=== PATIENT | female | born 1990 | race Caucasian/White ===

== ENCOUNTER 2023-10-11 18:25 | Inpatient (IN) | payer SELFPAY, OTHER ==
[2023-10-11] VITALS (7 sets, daily range): BP systolic 120–124; BP diastolic 69–78; PULSE 70–82; RESP 17–18; TEMP 36.1–36.7; O2SAT 97–98; BMI 27.1
[2023-10-11] MEDS: Lactated Ringers 1,000 ML 50 ML IV (19:16)
[2023-10-11 19:25] LABS: Absolute Lymphocyte Count 2.62 X10^3/uL (0.83-4.51); Absolute Neutrophil Count 9.8 X10^3/uL (2.0-7.7); Basophil# 0.04 X10^3/uL; Basophil% 0.3 % (0-1); Eosinophil# 0.12 X10^3/uL; Eosinophils% 0.9 % (0-5); Hematocrit 36.8 % (37-47); Hemoglobin 12.4 g/dL (12.0-15.0); Lymphocyte # 2.62 X10^3/ul (0.83-4.51); Lymphocyte % 19.5 % (19-41); Mean Corp Hgb Conc 33.7 g/dL (32-36); Mean Corpuscular Hgb 30.4 pg (27.0-32.0); Mean Corpuscular Volume 90.2 fL (81-99); Mean Platelet Vol. 9.7 fl (6.2-12.0); Monocyte# 0.75 X10^3/uL; Monocyte% 5.6 % (0-10); NRBC Flagged by Analyzer 0 % (0-5); Neutrophil # 9.77 X10^3/uL (2.7-7.7); Neutrophil % 72.8 % (47-70); Platelet Count 220 K/mm3 (150-450); RBC Distribution Width CV 12.9 % (11.6-14.6); RBC Distribution Width SD 42.5 fl (35.1-43.9); Red Blood Count 4.08 M/mm3 (4.2-5.4); White Blood Count 13.4 K/mm3 (4.4-11.0)
[2023-10-11] MEDS: Penicillin G Pot 5,000,000 UNITS in 0.9% Normal Saline (100mL MB+) 100 ML 150 UNITS IV (19:31)
--- NOTE | 2023-10-11 19:48 | HP.PCM.OB_ITS ---
HPI - General General Date of Admission: 10/11/23 HPI Narrative SHODNA ECKERT, is a 33 F @ 38.6 weeks gestation who presents with SROM at 1500 today. History of section for breech presentation with first delivery. Successful with previous delivery in 2019. Desires . has been uncomplicated. She was receiving care at [facility] and transferred and seen at our office last week. Maternal Data Information SALINAS Calculator Estimated Delivery Date Method Current WG Current Estimate 10/19/23 Manual 38w 6d Final [facility] Medications PNV#14-iron [id number]#8-[id number] 27 mg iron-1 mg-300 mg-50 mg capsule 1 cap PO DAILY 10/11/23 [History Last Taken 10/11/23 08:00 1 cap] pyridoxine (vitamin B6) 25 mg tablet 25 mg PO TID nausea 10/11/23 [History Last Taken 10/11/23 07:00 25 mg] Allergy/AdvReac Type Severity Reaction Status Date / Time No Known Allergies Allergy Verified 10/11/23 18:31 Surgical History (Updated 10/11/23 @ 19:53 by Barbara Birmingham CNM) Previous section Social History Smoking Status: Never smoker History Elective abortions Hx Para 2 Spontaneous abortions Hx # Term Pregnancies Ectopic pregnancies Hx # Pregnancies Multiple births # of living children ROS Eyes Eyes: Denies blurry vision, change in vision or spots in vision ENT HEENT: Denies dizziness or headache(s) Cardiovascular Cardiovascular: Denies abdominal pain, chest pain or dyspnea Respiratory/Chest Respiratory/Chest: Denies cough, dyspnea, shortness of breath at rest or shortness of breath with exertion Gastrointestinal Gastrointestinal: Denies abdominal pain, diarrhea or vomiting Genitourinary Genitourinary: Denies change in urinary stream, difficulty urinating or dysuria Musculoskeletal Musculoskeletal: Reports none Integumentary Integumentary: Denies rash Neurologic Neurologic: Denies dizziness, headache(s), memory loss or weakness Psychiatric Psychiatric: Reports none Vital Signs Vital Signs Vital Signs: 10/11/23 19:34 10/11/23 19:34 10/11/23 19:34 Temperature Temperature Source Pulse Rate 70 Respiratory Rate Blood Pressure 124/69 H BP Systolic 124 BP Diastolic 69 Pulse Ox 97 10/11/23 19:36 10/11/23 19:36 10/11/23 19:36 Temperature Temperature Source Temporal Pulse Rate 82 Respiratory Rate Blood Pressure 124/69 H BP Systolic 124 BP Diastolic 69 Pulse Ox 10/11/23 19:36 10/11/23 19:36 10/11/23 19:36 Temperature 98.0 F Temperature Source Pulse Rate Respiratory Rate 17 Blood Pressure BP Systolic BP Diastolic Pulse Ox 97 Weight Weight: 144 lb Body Mass Index (BMI) 27.1 Physical Exam Const alert, oriented x3 and no apparent distress General Appearance: cooperative Orientation / Consciousness: awake Exam Limitations: no limitations HEENT normocephalic Head and Scalp: normal to inspection Eyes General Eye: normal appearance of both eyes Neck full ROM and no lymphadenopathy Lymph Lymphatic: no lymphadenopathy noted Chest inspection of chest normal Resp normal respiratory effort, normal air movement and clear to auscultation bilaterally Effort and Inspection: able to speak in complete sentences and symmetric chest movement Cardio regular rate and regular rhythm GI normal to inspection, nondistended, normoactive bowel sounds Manual OB Exam: presentation cephalic Amniotic Fluid: clear amniotic fluid Back/Spine normal ROM Extremity full ROM and no calf tenderness Skin no rashes or lesions noted General Skin Exam: no breakdown Neuro oriented x3 and CN's II-XII intact bilaterally Psych mental status grossly normal and thought process normal Labs Labs Labs: Blood Type Pending Antibody Screen Pending Hct 36.8 % (37-47) L Hgb 12.4 g/dL (12.0-15.0) Syphilis Total Ab Non-reactive GBS POSITIVE Assessment & Plan (1) 38 weeks gestation of : (2) Previous delivery, antepartum: (3) Hx successful (vaginal after ), currently : (4) Spontaneous rupture of amniotic membranes: (5) Positive GBS test: PLAN: Plan Admit to labor and delivery Start IV and run fluids per orders CE- 3.5/75/0 SROM for large amount of clear fluid around 1500 Successful with previous delivery Desires and consent signed in office GBS positive- Start PCN 5 million units IV now Epidural when indicated Anticipate Dr. Manzano notified of admission and is collaborating physician
[2023-10-11 20:02] LABS: Syphilis Antibodies Non-reactive
--- NOTE | 2023-10-11 21:38 | PN.OBGYN_ITS ---
Subjective Subjective Patient seen at bedside. Feeling increasing pain with contractions. Planning on ambulating hallways. Objective Data Objective Data Vital Signs: Vital Signs Temp Pulse Resp BP Pulse Ox 97.3 F L 76 18 122/73 H 97 10/11/23 21:24 10/11/23 21:25 10/11/23 21:24 10/11/23 21:25 10/11/23 21:24 Weight: 144 lb Body Mass Index (BMI) 27.1 Lab / Micro Data 10/11/23 19:15 Labs: Laboratory Results - last 24 hr 10/11/23 19:15: WBC 13.4 H, RBC 4.08 L, Hgb 12.4, Hct 36.8 L, MCV 90.2, MCH 30.4, MCHC 33.7, RDW Std Deviation 42.5, RDW Coeff of Maryana 12.9, Plt Count 220, MPV 9.7, Immature Gran % (Auto) 0.900, Neut % (Auto) 72.8 H, Lymph % (Auto) 19.5, [place] % (Auto) 5.6, Eos % (Auto) 0.9, Baso % (Auto) 0.3, Absolute Neuts (auto) 9.8 H, Absolute Lymphs (auto) 2.62, Nucleated RBC % 0, Syphilis Total Ab Non-reactive, Blood Type A POSITIVE, Antibody Screen NEGATIVE Assessment & Plan (1) Positive GBS test: (2) Spontaneous rupture of amniotic membranes: (3) Hx successful (vaginal after ), currently : (4) Previous delivery, antepartum: (5) 38 weeks gestation of : PLAN: Plan CE Clear fluid Discussed R/B/A of starting Pitocin IV to augment labor. Patient would like to wait for another 2 hours and then reevaluate Cat. 1 tracing, Irregular contractions Dr. Manzano updated and is currently on unit
[2023-10-11 21:51] LABS: Rubella IgG Reactive (Nonreactive)
[2023-10-11 22:24] LABS: HIV - WCH Non-Reactive (Nonreactive); Hepatitis B Surface Antigen Non-Reactive (Nonreactive); Hepatitis C Antibody Non-Reactive (Nonreactive)
[2023-10-11] MEDS: Penicillin G 3,000,000 Units 50 ML 100 UNITS IV (23:47)
[2023-10-11] MEDS: Oxytocin 15 Units/NS 250ml 15 UNITS/250 ML IV.SOLN 2 UNITS IV (23:50)
[2023-10-12] VITALS (23 sets, daily range): BP systolic 106–127; BP diastolic 65–83; PULSE 60–92; RESP 16–22; TEMP 36.3–37.1; O2SAT 97–98
[2023-10-12] MEDS: Ondansetron 4 MG/2 ML Vial IV (00:49)
--- NOTE | 2023-10-12 02:05 | OP.PCM_ITS ---
Assessment & Plan (1) Vaginal after (): (2) Care and examination of lactating mother: Maternal Data Information SALINAS Calculator Estimated Delivery Date Method Current WG Current Estimate 10/19/23 Manual 39w 0d Vaginal Delivery Maternal Presentation Maternal Presentation: Spontaneous Rupture of Membranes Maternal Presentation: at 38.6 weeks presented with spontaneous rupture of membranes. Operative Information Date of Procedure: 10/12/23 Pre-Operative Diagnosis: Term gestation, SROM Post-Operative Diagnosis: , live male Surgery / Procedure Performed: Spontaneous Vaginal Delivery and Type of Anesthesia: None Estimated Blood Loss: 200 Time of Delivery: 01:46 Findings Description of Procedure: Called to patient's room due to urge to push. Provided bedside support with pushing. Patient repositioned to hands and knees. With minimal maternal effort, head delivered followed by remainder of body without traction. Vigorous male placed through maternal legs and placed skin to skin with patient. Nursing staff attending to infant. Patient repositioned to lithotomy. Pitocin IV started for active management of the third stage of labor. Cord was clamped and cut after minimal delay and request for to be seen under warmer. Placenta delivered spontaneously and intact. Fundus firm and 2 below U. Small vaginal laceration noted that was not actively bleeding. Perineum intact. Hemostasis occurred. EBL 200. Truck Service Manager called to room after 5 minutes for assessment of under warmer. Dr. Manzano notified on unit and notified of delivery. Presentation: Vertex Amniotic Membrane Rupture Type: Spontaneous Time of Membrane Rupture: 1530 Amniotic Fluid Description: Clear Placental Delivery Description: Spontaneous Placenta Disposition: [facility] Cord Vessel Description: 3 Vessels Cord Entanglement: None Infant A Gender: Male (1 minute): 8 (5 minute): 7 Delayed Cord Clamping: Yes Post Vaginal Delivery Medications Given After Delivery: IV Pitocin Episiotomy Description: None Laceration: None Complication Complications: None
[2023-10-12] MEDS: Oxytocin 15 Units/NS 250ml 15 UNITS/250 ML IV.SOLN 83 UNITS IV (02:19)
[2023-10-12] MEDS: Acetaminophen 500 MG Tablet 1000 MG PO ×3 (04:19→20:44)
[2023-10-12] MEDS: Ibuprofen 600 MG Tablet PO ×2 (08:17→17:29)
--- NOTE | 2023-10-12 09:36 | PN.OBGYN_ITS ---
Subjective Subjective Patient seen at bedside. Denies pain. Ambulating and voiding without difficulty. Lochia is decreasing. Pumping due to baby being in SCN. Objective Data Objective Data Vital Signs: Vital Signs Temp Pulse Resp BP Pulse Ox O2 Del Method 98.7 F 61 16 124/73 H 98 Room Air 10/12/23 08:09 10/12/23 08:09 10/12/23 08:09 10/12/23 08:09 10/12/23 08:09 10/12/23 08:09 Oxygen Delivery Method Room Air Weight: 144 lb Body Mass Index (BMI) 27.1 Intake & Output: Intake and Output for Last 24 Hours 10/10/23 10/11/23 10/12/23 23:59 23:59 23:59 Intake Total 105 / 105 833.87 / 833.87 Output Total 500 / 500 1625 / 1625 Balance -395 / -395 -791.13 / -791.13 Lab / Micro Data 10/11/23 19:15 Labs: Laboratory Results - last 24 hr 10/11/23 19:15: WBC 13.4 H, RBC 4.08 L, Hgb 12.4, Hct 36.8 L, MCV 90.2, MCH 30.4, MCHC 33.7, RDW Std Deviation 42.5, RDW Coeff of Maryana 12.9, Plt Count 220, MPV 9.7, Immature Gran % (Auto) 0.900, Neut % (Auto) 72.8 H, Lymph % (Auto) 19.5, [place] % (Auto) 5.6, Eos % (Auto) 0.9, Baso % (Auto) 0.3, Absolute Neuts (auto) 9.8 H, Absolute Lymphs (auto) 2.62, Nucleated RBC % 0, Syphilis Total Ab Non-reactive, Blood Type A POSITIVE, Antibody Screen NEGATIVE 10/11/23 21:10: Hep Bs Antigen Non-Reactive, Hepatitis C Antibody Non-Reactive, HIV 1&2 Antibody Non-Reactive, Rubella IgG Antibody Reactive Micro: Microbiology 10/11/23 21:30 Genital vaginal Chlamydia trachomatis (PCR) - Final 10/11/23 21:30 Genital vaginal Neisseria gonorrhoeae (PCR) - Final ROS Eyes Eyes: Denies blurry vision, change in vision or spots in vision ENT HEENT: Denies dizziness or headache(s) Cardiovascular Cardiovascular: Denies abdominal pain, chest pain or dyspnea Respiratory/Chest Respiratory/Chest: Denies cough, dyspnea, shortness of breath at rest or shortness of breath with exertion Gastrointestinal Gastrointestinal: Denies abdominal pain, diarrhea or vomiting Genitourinary Genitourinary: Denies change in urinary stream, difficulty urinating or dysuria Musculoskeletal Musculoskeletal: Reports none Integumentary Integumentary: Denies rash Neurologic Neurologic: Denies dizziness, headache(s), memory loss or weakness Assessment & Plan (1) Care and examination of lactating mother: (2) Vaginal after (): PLAN: Plan DD 1 - Pain control support Anticipate discharge/hotel status tomorrow
--- NOTE | 2023-10-12 12:20 | CASEMGMT ---
Social Work Assessment Labor and Delivery Unit Patient Address:[address] [place] [address] Phone number: [phone] Date of Referral: 10/12/23 Time of Referral:? 323 Referred By: Harpreet Wray Date of Intervention: ??10/12/23 Time of Intervention:? 1200 Reason for Referral:? SCN admission Sw completed chart review and acknowledges social work consult entered due to baby requiring admission to [facility]. Sw presented to bedside and introduced self to mother of baby (MOB- Hannah) and father of baby (FOB- Ron). Sw explained role during hospitalization and completed psychosocial assessment. History obtained from: medical records, MOB and FOB Household composition: Currently residing in the family home is RENE, SHARDA, their two older daughters (Mounika, 6 y/o and Nichelle, 3 y/o) and now baby when ready for d/c. No concerns reported about current housing. Patient's parent/guardian status:? ?MOB states that she and SHARDA have been together for 7.5 years, they met while attending the same youth group. No reported concerns of domestic violence or intimate partner violence. Medical History: ?RENE is 33 year old female who is 3, para 2- now 3 following labor and delivery of . RENE received care with blower insulator throughout . RENE presented to hospital and delivered baby via successful at 38 weeks gestation on 10/12/23. Baby boy, named Juan Pablo, was born weighing 7lb and his apgars were 8 and 7 at one and five minutes of life, respectfully. Baby was diagnosed with hypoglycemia and respiratory distress and was admitted to [facility], no discharge identified at this time. MOB states that baby will be followed by Dr. Maurice for pediatrics. Educational Status:? Both parents completed the 8th grade. 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 MOB is a stay at home mom. Infant Supplies:?? Parents report that they have obtained all necessary baby supplies, including: car seat, safe sleep space, clothes, diapers and wipes. Childcare/Caregiver(s):? MOB will be the primary caregiver along with FOB when he is not at work. Transportation:?? Parents use horse and buggy and primary means of transportation, they have access to a seasonal driver and other family members who can drive them when necessary. Programs/Agencies Involved: ???Parents are not connected to any community resources that assist them financially aside from the [facility] [employer]. Children Services/Legal Issues:??? No history of involvement, no issues or concerns warranting referral to be made at this time. Behavioral Health Issues: ??Mental Health History:??Parents deny mental health history. ? Substance Use History: No substance use prior to or during .?? Family History:?MOB states that her mom does struggle with depression, no family history of addiction or substance use. ? Drug Screens: ??No drug screens observed during chart review. Family/Social Stressors:?Although baby is admitted to [facility] parents deny any issues or stressors at this time. Support Systems: Parents state that both sets of grandparents are supportive. FOB states that his parents live one mile down the road and are always available to help when needed. Depression/Shaken Baby/Safe Sleeping:? Sw educated parents on signs and symptoms of baby blues and depression and anxiety during period. Parents express understanding, MOB denies ever struggling in the past. FOB states that he would be able to recognize a change in MOB and would know how to help and support her. Sw educated parents on shaken baby prevention and ABCs of safe sleep. parents express understanding. ASSESSMENT:?MOB and baby admitted following labor and delivery. Parents welcoming to meet with pawan. Parents were talkative and engaging throughout assessment, answering questions asked. Baby requires admission to [facility], parents asked appropriate questions. Parents have all necessary baby supplies and natural supports in place. PLAN:? MOB and baby to be discharged when medically ready. ?No other services requested or indicated. Chris Lopez, DEMOLITION CRANE OPERATOR, GAS OR PETROLEUM OPERATOR
[2023-10-13 01:27] VITALS: BP 99/67; PULSE 71; RESP 16; O2SAT 95
[2023-10-13] MEDS: Ibuprofen 600 MG Tablet PO ×3 (01:35→14:31)
[2023-10-13] MEDS: Acetaminophen 500 MG Tablet 1000 MG PO ×2 (06:54→13:30)
[2023-10-13 08:20] VITALS: BP 99/68; PULSE 66; RESP 15; TEMP 36.8
--- NOTE | 2023-10-13 10:27 | PCM.DC.SUM ---
Providers Date of Admission: 10/11/23 Primary Care Physician: Dr. Michele Maurice DO Reason For Visit: VAG Diagnosis Discharge Diagnosis (1) Care and examination of lactating mother: Status: Acute Code(s): Z39.1 - Encounter for care and examination of lactating mother (2) Vaginal after (): Status: Acute Code(s): O34.219 - Maternal care for unspecified type scar from previous delivery Plan PPD 1 - Pain control support D/C home or hotel status Medications at Discharge Home Medications PNV#14-iron fum-FA#6-qcb-eqfzinnp 27 mg iron-1 mg-300 mg-50 mg capsule 1 cap PO DAILY 10/11/23 Hospital Course Operations None Procedures None Summary of Care Provided Minutes Spent on Discharge: 10 Hospital Course: Patient had . Hospital course was uneventful. Physical Exam Const alert and no apparent distress General Appearance: cooperative and comfortable Exam Limitations: no limitations HEENT normocephalic Eyes General Eye: normal appearance of both eyes Neck full ROM General: normal visual inspection Chest Chest: symmetrical chest wall rise Resp normal respiratory effort and normal air movement Effort and Inspection: symmetric chest movement Auscultation: clear to auscultation bilaterally Cardio regular rate and regular rhythm GI normal to inspection, nondistended, normoactive bowel sounds Back/Spine normal ROM Extremity full ROM and no calf tenderness General Extremity: normal exam except as noted Skin no rashes or lesions noted Neuro CN's II-XII intact bilaterally Psych mental status grossly normal Weight / BMI Weight Weight: 144 lb Body Mass Index (BMI) 27.1 ABG / Lab / Microbiology Data 10/11/23 19:15 Microbiology: Microbiology 10/11/23 21:30 Genital vaginal Chlamydia trachomatis (PCR) - Final 10/11/23 21:30 Genital vaginal Neisseria gonorrhoeae (PCR) - Final D/C Instructions Discharge Diet: No restrictions May resume sexual activity in: 6-8 weeks Weight Bearing Status: Weight bearing as tolerated Call your doctor if you observe: Fever of 101 or Higher, Inability to urinate, Using more than 1 pad per hour, Shortness of breath, Chest pain, Calf discomfort and Uncontrolled pain Please Follow Up With: Barbara Birmingham CNM When: 2 weeks virtual visit/ 6 weeks in office Meaningful Use Info Meaningful Use Diagnoses (Choose all that apply): None applicable Discharge Plan Admission Admit Date/Time: 10/11/23 18:25 Primary Reason for Your Visit: Labor and Delivery Attending Provider: Barbara Birmingham Primary Care Provider: Michele Maurice Discharge Orders/Prescriptions Prescriptions: Continued PNV #14-iron-FA#2-odl-iabvyazl 27 mg iron-1 mg -300 mg-50 mg capsule 1 cap PO DAILY Discontinued pyridoxine (vitamin B6) 25 mg tablet 25 mg PO TID Referrals / Follow Up: Michele Maurice DO [Primary Care Provider] - Disposition Disposition (needs filled in before D/C Order can be placed): Home, Self Care
[2023-10-13 13:40] VITALS: BP 100/70; PULSE 62; RESP 15; TEMP 36.8
== END 2023-10-13 17:56 | disposition home or self-care (01) | DRG 806 ==
LOC: WPOUT 18:27 → WP 18:27
PROVIDERS: Admitting Provider Advanced Practice Midwife; PCP Family Medicine; Referring Provider Advanced Practice Midwife; Visit Provider Advanced Practice Midwife
DX: O42.02 Full-term premature rupture of membranes, onset of labor within 24 hours of rupture (principal); Z37.0 Single live birth; O71.4 Obstetric high vaginal laceration alone; O34.219 Maternal care for unspecified type scar from previous cesarean delivery; O99.824 Streptococcus B carrier state complicating childbirth; Z3A.38 38 weeks gestation of pregnancy; Z87.59 Personal history of other complications of pregnancy, childbirth and the puerperium
CPT/HCPCS: 59025; 59050; 85025; 86703; 86762; 86780; 86803; 86850; 86900; 86901; 87340; 87491; 87591; 99221; J7120; G0378; J2405